=== PATIENT | male | born 1970 | race Caucasian/White ===

== ENCOUNTER 2019-06-08 18:03 | Emergency (ER) | payer OTHER ==
--- NOTE | 2019-06-08 18:38 | UC ---
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 - History of Current Complaint Chief Complaint: UCRespiratory Stated Complaint: SINUS PRESSURE,RT EAR CLOGGED Time Seen by Provider: 06/08/19 18:11 Hx Obtained From: Patient Onset/Duration: Sudden Onset, Lasting Days - 1 Timing: Constant Severity Initially: Mild Severity Currently: Mild Alleviating Factors: OTC Meds - tylenol 1 hour ago Associated Signs And Symptoms: Positive: Fever, URI, Nasal Congestion, Sinus Discomfort - Allergies/Home Medications Allergies/Adverse Reactions: Allergies Allergy/AdvReac Type Severity Reaction Status Date / Time No Known Allergies Allergy Verified 06/08/19 19:08 Home Medications: Home Medications Amoxicillin/Clavulanate TAB* [Augmentin TAB 875*] 875 mg PO BID #19 tab [Rx] Amoxicillin/Clavulanate TAB* [Augmentin TAB 875*] 875 mg PO BID #19 tab [Rx] Hydrocodone/Acetaminophen [Hydrocodone-Acetamin 5-325 mg] 1 each PO BID PRN #4 tablet MDD 2 06/08/19 [Rx] Hydrocodone/Acetaminophen [Hydrocodone-Acetamin 5-325 mg] 1 each PO BID PRN #4 tablet MDD 2 06/08/19 [Rx] PMH/Surg Hx/FS Hx/Imm Hx Previously Healthy: Yes - Surgical History Surgical History: None - Family History Known Family History: Positive: None - Social History Occupation: Employed Full-time Lives: With Family Alcohol Use: None Substance Use Type: None Have You Smoked in the Last Year: No Review of Systems All Other Systems Reviewed And Are Negative: Yes Constitutional: Positive: Fever, Chills, Fatigue Skin: Positive: Negative Eyes: Positive: Negative ENT: Positive: Sore Throat, Ear Ache, Sinus Congestion Respiratory: Positive: Negative Cardiovascular: Positive: Negative Gastrointestinal: Positive: Negative Genitourinary: Positive: Negative Motor: Positive: Negative Neurovascular: Positive: Negative Musculoskeletal: Positive: Negative Neurological/Mental Status: Positive: Negative Psychological: Positive: Negative Is Patient Immunocompromised?: No Physical Exam Triage Information Reviewed: Yes Appearance: No Pain Distress, Well-Nourished, Ill-Appearing - mild Vital Signs Reviewed: Yes Eye Exam: Normal Eyes: Positive: Conjunctiva Clear ENT Exam: Normal ENT: Positive: Normal ENT inspection, Hearing grossly normal, Pharynx normal, TMs normal - left, TM bulging - right, TM red - right, Uvula midline. Negative : Nasal congestion, Nasal drainage, Tonsillar swelling, Tonsillar exudate, Trismus, Muffled voice, Hoarse voice, Dental tenderness, Sinus tenderness Dental Exam: Normal Neck exam: Normal Neck: Positive: Supple, Nontender Respiratory Exam: Normal Respiratory: Positive: Chest non-tender, Lungs clear, Normal breath sounds, No respiratory distress, No accessory muscle use Cardiovascular Exam: Normal Cardiovascular: Positive: RRR, No Murmur, Pulses Normal, Brisk Capillary Refill Musculoskeletal Exam: Normal Musculoskeletal: Positive: Strength Intact, ROM Intact, No Edema Neurological Exam: Normal Neurological: Positive: Alert, Muscle Tone Normal Psychological Exam: Normal Skin Exam: Normal Diagnostics - Laboratory Lab Results: influenza a/b - strep - Respiratory Course/Dx - Course Course Of Treatment: Will test for covid based on travel and fever---more likely acute otitis (r) is treatment with Augmentin and follow Bp and symptoms with pcp or [facility] - Differential Dx/Diagnosis Provider Diagnosis: Otitis media, right, Otitis media, purulent, acute, with spontaneous rupture of TM, Hypertension Discharge ED - Sign-Out/Discharge Documenting (check all that apply): Patient Departure All imaging exams completed and their final reports reviewed: No Studies - Discharge Plan Condition: Stable Disposition: HOME Prescriptions: Amoxicillin/Clavulanate TAB* [Augmentin TAB 875*] 875 mg PO BID #19 tab Amoxicillin/Clavulanate TAB* [Augmentin TAB 875*] 875 mg PO BID #19 tab Hydrocodone/Acetaminophen [Hydrocodone-Acetamin 5-325 mg] 1 each PO BID PRN #4 tablet MDD 2 PRN Reason: Pain - Moderate Hydrocodone/Acetaminophen [Hydrocodone-Acetamin 5-325 mg] 1 each PO BID PRN #4 tablet MDD 2 PRN Reason: Pain - Moderate Patient Education Materials: Ear Infection (ED), Hypertension (ED) Forms: COVID-19 Tested & Isolation Referrals: [facility] [Outside] - 1 Week - Billing Disposition and Condition Condition: STABLE Disposition: Home
[2019-06-08 18:53] LABS: Influenza A Molecular Negative (Negative); Influenza B Molecular Negative (Negative)
[2019-06-08] MEDS ORDERED: HYDROcodone/ACETAMIN 5-325 MG* 1 TAB PO ONE (19:05)
[2019-06-08] MEDS ORDERED: Amoxicillin/Clavulanate TAB* 875 MG PO ONE (19:05)
[2019-06-08 19:09] VITALS: BP 169/93
== END 2019-06-08 19:30 | disposition home or self-care (01) ==
LOC: UCEAST 18:03
DX: H66.011 Acute suppurative otitis media with spontaneous rupture of ear drum, right ear (principal); I10 Essential (primary) hypertension; R50.9 Fever, unspecified; Z20.828 Contact with and (suspected) exposure to other viral communicable diseases
CPT/HCPCS: 87651; 99202; A9270-GY; G0463